=== PATIENT | female | born 1960 | race Caucasian/White ===

== ENCOUNTER → 2018-01-20 | Outpatient (CLI) | payer OTHER ==
[~2018-01-20] MED LIST: VICODIN 5-5001 EACH PO; VIROPTIC7.5 ML OP
== END ==
LOC: M.RAD 13:49
DX: M47.27 Other spondylosis with radiculopathy, lumbosacral region (principal); M16.0 Bilateral primary osteoarthritis of hip; M17.11 Unilateral primary osteoarthritis, right knee; M47.24 Other spondylosis with radiculopathy, thoracic region